=== PATIENT | male | born 1980 | race Caucasian/White ===

== ENCOUNTER 2018-06-09 08:20 | Emergency (ER) | payer BC ==
[~2018-06-09] VITALS: Ht 185.4 cm; Wt 131.5 kg
[2018-06-09 08:33] VITALS: BP 155/92
[2018-06-09] MEDS ORDERED: VYVANSE50 MG PO (08:36)
[2018-06-09] MEDS ORDERED: KEFLEX500 M1 PO (08:54)
== END 2018-06-09 09:30 | disposition home or self-care (01) ==
LOC: ER 08:20
DX: S61.412A Laceration without foreign body of left hand, initial encounter (principal); F90.9 Attention-deficit hyperactivity disorder, unspecified type; Z23 Encounter for immunization; Z87.891 Personal history of nicotine dependence; W27.0XXA Contact with workbench tool, initial encounter; Y92.89 Other specified places as the place of occurrence of the external cause; Y99.0 Civilian activity done for income or pay; Y99.8 Other external cause status